=== PATIENT | female | born 1940 | race Caucasian/White ===

== ENCOUNTER → 2016-05-15 | Outpatient (CLI) | payer MEDICARE, BC ==
[~2016-05-15] MED LIST: ANORO IH; ASPIRIN 32325 MG/TAB PO; CALCIUM CARBON650 M2 PO; DESYREL 50MG50 MG PO; LOPRESSOR 550 MG/TAB PO; MULTI VITAMINS1 TAB PO; NEURONTIN100 MG/CAP PO; TYLENOL 8 HR PO; ULTRAM 50MG TAB50 MG PO
== END ==
LOC: MC.RAD 10:55
DX: Z12.31 Encounter for screening mammogram for malignant neoplasm of breast (principal); R92.1 Mammographic calcification found on diagnostic imaging of breast

== ENCOUNTER → 2016-09-09 | Outpatient (CLI) | payer MEDICARE, BC | LOC: COL.RAD 12:51 | DX: M25.551 Pain in right hip (principal) | CPT/HCPCS: J3301; Q9967 ==

== ENCOUNTER → 2016-10-15 | Outpatient (CLI) | payer MEDICARE, BC | LOC: MHCPAIN 09:49 | DX: G89.29 Other chronic pain (principal); M47.817 Spondylosis without myelopathy or radiculopathy, lumbosacral region; M54.16 Radiculopathy, lumbar region; M53.3 Sacrococcygeal disorders, not elsewhere classified; M41.06 Infantile idiopathic scoliosis, lumbar region | CPT/HCPCS: G0463 ==

== ENCOUNTER → 2016-10-24 | Outpatient (CLI) | payer MEDICARE, BC | LOC: MHCPAIN 10:40 | DX: M47.817 Spondylosis without myelopathy or radiculopathy, lumbosacral region (principal) | CPT/HCPCS: J1100; Q9967 ==

== ENCOUNTER → 2016-11-25 | Outpatient (CLI) | payer MEDICARE, BC | LOC: MHCPAIN 09:37 | DX: G89.29 Other chronic pain (principal); M47.817 Spondylosis without myelopathy or radiculopathy, lumbosacral region; M54.16 Radiculopathy, lumbar region; M53.3 Sacrococcygeal disorders, not elsewhere classified; M41.9 Scoliosis, unspecified | CPT/HCPCS: G0463 ==

== ENCOUNTER → 2016-12-10 | Outpatient (CLI) | payer MEDICARE, BC ==
[2016-12-10 12:21] LABS: HIV 1/2 Antibodies Non-Reactive; HIV-1p24 Antigen Non-Reactive
== END ==
LOC: COL.LAB 09:43
PROVIDERS: Orthopaedic Surgery
DX: Z01.812 Encounter for preprocedural laboratory examination (principal); M16.11 Unilateral primary osteoarthritis, right hip

== ENCOUNTER 2016-12-12 10:44 | Outpatient (RCR) | payer MEDICARE, BC ==
[2017-01-03] MEDS ORDERED: ANORO IH (14:10)
[2017-01-03] MEDS ORDERED: LOPRESSOR 550 MG/TAB PO (14:11)
[2017-01-03] MEDS ORDERED: NEURONTIN100 MG/CAP PO ×2 (14:12→14:23)
[2017-01-03] MEDS ORDERED: ASPIRIN 32325 MG/TAB PO (14:13)
[2017-01-03] MEDS ORDERED: MULTI VITAMINS1 TAB PO (14:13)
[2017-01-03] MEDS ORDERED: CALCIUM CARBON650 M2 PO (14:14)
[2017-01-03] MEDS ORDERED: ULTRAM 50MG TAB50 MG PO (14:15)
[2017-01-03] MEDS ORDERED: DESYREL 50MG50 MG PO (14:16)
[2017-01-03] MEDS ORDERED: TYLENOL 8 HR PO (14:17)
== END 2016-12-13 07:52 | disposition home or self-care (01) ==
LOC: WSPT 10:44
DX: Z01.818 Encounter for other preprocedural examination (principal); M16.11 Unilateral primary osteoarthritis, right hip
CPT/HCPCS: G8978-GP; G8979-GP; G8980-GP

== ENCOUNTER → 2016-12-23 | Outpatient (REF) ==
[2016-12-23 13:51] LABS: HEMATOCRIT 30.1 % (37.0-47.0); HEMOGLOBIN 9.9 g/dl (12.5-16.0)
== END ==
LOC: ZCOL.LAB 13:31
PROVIDERS: Internal Medicine
DX: Z01.89 Encounter for other specified special examinations (principal)

== ENCOUNTER → 2017-05-16 | Outpatient (CLI) | payer MEDICARE, BC | LOC: MC.RAD 10:05 | DX: Z12.31 Encounter for screening mammogram for malignant neoplasm of breast (principal) ==

== ENCOUNTER 2017-06-26 14:15 | Outpatient (RCR) | payer MEDICARE, BC | END 2017-06-29 | disposition home or self-care (01) | LOC: WSPT | DX: S72.111D Displaced fracture of greater trochanter of right femur, subsequent encounter for closed fracture with routine healing (principal); Z96.641 Presence of right artificial hip joint | CPT/HCPCS: G8978-GP; G8979-GP ==

== ENCOUNTER 2017-08-04 09:45 | Outpatient (RCR) | payer MEDICARE, BC | END 2017-08-12 08:05 | disposition home or self-care (01) | LOC: WSPT 09:45 | DX: Z47.1 Aftercare following joint replacement surgery (principal); Z96.641 Presence of right artificial hip joint | CPT/HCPCS: G8979-GP; G8980-GP ==

== ENCOUNTER → 2017-10-09 | Outpatient (CLI) | payer MEDICARE, BC ==
[2017-10-09 14:54] LABS: HEMOGLOBIN 12.3 g/dl (12.5-16.0); MEAN CELL VOLUME 97 fl (80.0-100.0); MEAN CORPUSCULAR HEMOGLOBIN 33 pg (27.0-31.0); MEAN CORPUSCULAR HGB CONC 34 g/dl (33.0-37.0); MEAN PLATELET VOLUME 8.7 fl (7.4-10.4); PLATELET COUNT 209 K/mm3 (130-400); RED BLOOD COUNT 3.79 M/mm3 (4.10-5.30); REDCELL DISTRIBUTION WIDTH-CV 13.8 % (11.5-14.5)
[2017-10-09 14:56] LABS: HEMATOCRIT 36.6 % (37.0-47.0)
[2017-10-09 15:42] LABS: ERYTHROCYTE SEDIMENTATION RATE 11 mm/hr (0-30)
== END ==
LOC: COL.LAB 14:26
PROVIDERS: Nurse Practitioner
DX: Z47.1 Aftercare following joint replacement surgery (principal); M25.551 Pain in right hip; Z96.641 Presence of right artificial hip joint

== ENCOUNTER → 2018-06-04 | Outpatient (CLI) | payer MEDICARE, BC | LOC: MC.RAD 10:45 | DX: Z12.31 Encounter for screening mammogram for malignant neoplasm of breast (principal) ==

== ENCOUNTER → 2018-09-23 | Outpatient (CLI) | payer MEDICARE, BC | LOC: COL.RAD 12:53 | DX: M19.042 Primary osteoarthritis, left hand (principal) | CPT/HCPCS: J3301; Q9967 ==

== ENCOUNTER 2018-12-08 10:00 | Outpatient (RCR) | payer MEDICARE, BC | END 2019-02-22 | disposition still patient (30) | LOC: WSOT | DX: M19.042 Primary osteoarthritis, left hand (principal) ==

== ENCOUNTER → 2019-02-25 | Outpatient (CLI) | payer MEDICARE, BC | LOC: COL.RAD 11:26 | DX: M71.332 Other bursal cyst, left wrist (principal); M19.032 Primary osteoarthritis, left wrist ==

== ENCOUNTER → 2019-05-03 | Outpatient (CLI) | payer MEDICARE, BC | LOC: COL.RAD 14:00 | DX: M25.532 Pain in left wrist (principal) | CPT/HCPCS: J3301; Q9967 ==

== ENCOUNTER → 2019-06-17 | Outpatient (CLI) | payer MEDICARE, BC | LOC: MC.RAD 08:55 | DX: Z12.31 Encounter for screening mammogram for malignant neoplasm of breast (principal) ==

== ENCOUNTER 2020-01-28 15:05 | Outpatient (CLI) | payer MEDICARE, BC ==
[~2020-01-28] VITALS: Ht 165.1 cm; Wt 51.0 kg
[~2020-01-28 15:05] MED LIST changes: +LOPRESSOR 225 MG/TAB PO; -LOPRESSOR 550 MG/TAB PO; +NORCO 325 MG-7.1 TAB PO
[2020-01-28] MEDS ORDERED: MASON NATURAL S1 CAP PO (15:09)
[2020-01-28] MEDS ORDERED: TOPROL XL 25MG25 MG PO (15:11)
[2020-01-28] MEDS ORDERED: EFFEXOR XR37.5 MG/CA PO (15:12)
[2020-01-28] MEDS ORDERED: PROLIA60 MG/ML SQ (15:13)
[2020-01-28] MEDS ORDERED: ULTRAM 50MG TAB50 MG PO (15:14)
[2020-01-28 15:26] VITALS: BP 152/93; PULSE 76; TEMP 97.5
== END 2020-01-28 16:09 | disposition home or self-care (01) ==
LOC: EUO 15:05
DX: M81.0 Age-related osteoporosis without current pathological fracture (principal)
CPT/HCPCS: J0897

== ENCOUNTER → 2020-06-29 | Outpatient (CLI) | payer MEDICARE, BC ==
[~2020-06-29] MED LIST changes: +CALCIUM 600MG+D1 TAB PO; +EFFEXOR XR37.5 MG/CA PO; +MASON NATURAL S1 CAP PO; +PROLIA60 MG/ML SQ; +SYNTHROID0.05 MG/TA PO; +TOPROL XL 25MG25 MG PO
== END ==
LOC: MC.RAD
DX: Z12.31 Encounter for screening mammogram for malignant neoplasm of breast (principal)

== ENCOUNTER 2020-07-31 13:47 | Outpatient (CLI) | payer MEDICARE, BC ==
[~2020-07-31] VITALS: Ht 165.1 cm; Wt 51.6 kg
[~2020-07-31 13:47] MED LIST changes: -CALCIUM 600MG+D1 TAB PO; -SYNTHROID0.05 MG/TA PO
[2020-07-31 14:12] VITALS: BP 153/78; PULSE 65; TEMP 97.4
[2020-07-31] MEDS ORDERED: SYNTHROID0.05 MG/TA PO (14:30)
[2020-07-31] MEDS ORDERED: CALCIUM 600MG+D1 TAB PO (14:32)
== END 2020-07-31 14:33 | disposition home or self-care (01) ==
LOC: EUO 13:47
DX: M81.0 Age-related osteoporosis without current pathological fracture (principal)
CPT/HCPCS: J0897

== ENCOUNTER 2020-08-03 10:00 | Outpatient (RCR) | payer MEDICARE, BC ==
[~2020-08-03 10:00] MED LIST changes: +CALCIUM 600MG+D1 TAB PO; +SYNTHROID0.05 MG/TA PO
== END 2020-08-03 15:39 | disposition home or self-care (01) ==
LOC: WSOT 10:00
DX: M25.532 Pain in left wrist (principal)

== ENCOUNTER → 2021-08-22 | Outpatient (CLI) | payer MEDICARE, BC | LOC: MC.RAD 10:04 | DX: Z12.31 Encounter for screening mammogram for malignant neoplasm of breast (principal) ==

== ENCOUNTER → 2021-09-04 | Outpatient (CLI) | payer MEDICARE, BC | LOC: COL.PUL 07:54 | DX: R06.02 Shortness of breath (principal); R06.09 Other forms of dyspnea ==

== ENCOUNTER → 2021-09-13 | Outpatient (CLI) | payer MEDICARE, BC | LOC: COL.VAS 11:59 | DX: R06.02 Shortness of breath (principal) ==